=== PATIENT | male | born 1945 ===

== ENCOUNTER 2018-12-16 10:57 | Emergency (ER) | payer MEDICARE, MEDICAID ==
[2018-12-16 10:57] VITALS: BMI 26.0
[2018-12-16 11:53] VITALS: BP 134/78; PULSE 68; RESP 18; TEMP 98.3; O2SAT 95
== END 2018-12-16 14:08 | disposition left against medical advice (07) ==
LOC: C.ER 10:57
DX: Z02.89 Encounter for other administrative examinations (principal); S61.419A Laceration without foreign body of unspecified hand, initial encounter

== ENCOUNTER 2018-12-25 10:12 | Outpatient (CLI) | payer MEDICARE, MEDICAID | END 2018-12-25 10:13 | disposition home or self-care (01) | LOC: C.MRIC 10:12 ==